=== PATIENT | female | born 1960 | race Caucasian/White ===

== ENCOUNTER 2019-12-15 09:04 | Inpatient (IN) ==
[2019-12-15] MEDS ORDERED: PANTOPRAZOLE 40 MG VIAL IV STA (09:34)
[2019-12-15] MEDS ORDERED: ONDANSETRON 4 MG/2 ML VIAL IV STA ×2 (09:34→10:44)
[2019-12-15] MEDS ORDERED: SODIUM CHLORIDE 0.9% 1,000 ML IV STA (09:34)
[2019-12-15] MEDS ORDERED: metroNIDAZOLE INJ 500 MG in PREMIX 1 EACH IV STA (10:44)
[2019-12-15] MEDS ORDERED: cefTRIAXone 1,000 MG in SODIUM CHLORIDE 0.9% 100 ML IV STA (10:44)
[2019-12-15] MEDS ORDERED: fentaNYL 100 MCG/2 ML VIAL IV STA (10:44)
[2019-12-15 10:48] LABS: Basophils # 0.1 10*3/uL (0.0-0.2); Basophils % 0.7 % (0.0-0.8); Eosinophils # 0.3 10*3/uL (0.0-0.87); Eosinophils % 2.6 % (0.00-10.9); Hematocrit 38.4 VOL% (35.7-47.0); Hemoglobin 12.4 GM/DL (12.0-16.0); Immature Granulocytes % 0.5 %; Immature Granulocytes Absolute 0.05 #; Lymphocytes # 1.1 10*3/uL (1.4-4.0); Lymphocytes % 11.5 % (21.3-54.2); Mean Corpuscular HGB Conc 32.3 GM/DL (32-36); Mean Corpuscular Volume 98.7 FL (87-102); Mean Platelet Volume 9.1 FL (9.6-12.0); Monocytes % 6.6 % (1.7-12.7); Neutrophils % 78.1 % (38.7-73.9); Platelet Count 321 T/CUMM (130-400); Red Blood Count 3.89 MC/CUMM (3.8-5.5); Red Cell Distribution Width 17.4 % (9.3-17.3); White Blood Count 9.7 T/CUMM (4-12)
[2019-12-15 11:01] LABS: Alanine Aminotransferase 16 U/L (13-56); Albumin 3.5 G/DL (3.4-5.0); Alkaline Phosphatase 79 U/L (45-117); Amylase 44 U/L (25-115); Aspartate Amino Transferase 26 U/L (0-37); Bilirubin,Total < 0.39 MG/DL (0.2-1.0); Blood Urea Nitrogen 17 MG/DL (7-18); Calcium 9.3 MG/DL (8.5-10.1); Estimated Glom Filtration Rate 63 ML/MIN; Ferritin 34.5 ng/ml (8-252); Glucose 103 MG/DL (74-106); Osmolality,Calculated 278.5 MOS/KG (273-304); Total Protein 7.6 G/DL (6.4-8.3); Troponin I < 0.015 NG/ML (0.00-0.045)
[2019-12-15 11:26] LABS: Apearance,Urine CLEAR (Clear); Bilirubin,Urine Negative (Negative); Blood, Urine Negative (Negative); Glucose,Urine (UA) Negative (Negative); Ketones,Urine 5 mg/dL (Negative); Mucus,Urine Occasional /LPF (Occasional); Nitrite,Urine Negative (Negative); Protein,Urine Negative; RBC,Urine 1 /HPF (0-4); Squamous Epithelial Cell,Urine Occasional /HPF (0-10); Urine Color Yellow (Yellow); Urine Urobilinogen < 2.0 EU/DL (0.2-1.0); WBC,Urine 1 /HPF (0-6)
[2019-12-15] MEDS ORDERED: ALBUTEROL 2.5 MG/3 ML NEB RESP TX PRN (12:13)
[2019-12-15] MEDS: GABAPENTIN 400 MG CAPSULE PO SCH ×2 (15:04→21:24)
[2019-12-15] MEDS: DEXTROSE 5% LACTATED RINGERS 1,000 ML IV SCH ×2 (15:04→22:53)
[2019-12-15] MEDS: HYDROmorphone 2 MG/1 ML VIAL IV PRN ×2 (15:17→21:21)
[2019-12-15] MEDS: ONDANSETRON 4 MG/2 ML VIAL IV PRN ×3 (15:20→21:19)
[2019-12-15] MEDS: CARBIDOPA/LEVODOPA CR 50-200 MG TABLET PO SCH (21:24)
[2019-12-15] MEDS: METOPROLOL SUCCINATE XL 50 MG TABLET PO SCH (21:24)
[2019-12-16] MEDS: HYDROmorphone 2 MG/1 ML VIAL IV PRN ×5 (03:08→20:50)
[2019-12-16] MEDS: ONDANSETRON 4 MG/2 ML VIAL IV PRN ×3 (03:12→16:59)
[2019-12-16] MEDS: DEXTROSE 5% LACTATED RINGERS 1,000 ML IV SCH ×4 (04:30→23:53)
[2019-12-16 05:21] LABS: Basophils % 0.5 % (0.0-0.8); Eosinophils # 0.3 10*3/uL (0.0-0.87); Hematocrit 33.5 VOL% (35.7-47.0); Hemoglobin 10.9 GM/DL (12.0-16.0); Immature Granulocytes % 0.6 %; Immature Granulocytes Absolute 0.05 #; Lymphocytes # 0.9 10*3/uL (1.4-4.0); Lymphocytes % 11.2 % (21.3-54.2); Mean Corpuscular HGB Conc 32.5 GM/DL (32-36); Mean Corpuscular Volume 98.8 FL (87-102); Mean Platelet Volume 9.3 FL (9.6-12.0); Monocytes % 6.4 % (1.7-12.7); Neutrophils % 77.3 % (38.7-73.9); Platelet Count 237 T/CUMM (130-400); Red Blood Count 3.39 MC/CUMM (3.8-5.5); Red Cell Distribution Width 17.2 % (9.3-17.3); White Blood Count 8.4 T/CUMM (4-12)
[2019-12-16 05:37] LABS: Calcium 8.4 MG/DL (8.5-10.1); Osmolality,Calculated 280.4 MOS/KG (273-304)
[2019-12-16] MEDS: ENOXAPARIN 40 MG/0.4 ML SYRINGE SUBCUT SCH (06:16)
[2019-12-16] MEDS: PANTOPRAZOLE 40 MG TABLET PO SCH (08:21)
[2019-12-16] MEDS: GABAPENTIN 400 MG CAPSULE PO SCH ×3 (08:21→20:51)
[2019-12-16] MEDS: DILTIAZEM CD 240 MG CAPSULE PO SCH (08:21)
[2019-12-16] MEDS: PROMETHAZINE INJ 25 MG in SODIUM CHLORIDE 0.9% 50 ML IV PRN ×2 (10:55→20:38)
[2019-12-16] MEDS: POTASSIUM CHLORIDE RIDER 10 MEQ in PREMIX 1 EACH IV SCH ×4 (11:46→16:01)
[2019-12-16] MEDS: CARBIDOPA/LEVODOPA CR 50-200 MG TABLET PO SCH (20:51)
[2019-12-16] MEDS: METOPROLOL SUCCINATE XL 50 MG TABLET PO SCH (20:51)
[2019-12-17] MEDS: HYDROmorphone 2 MG/1 ML VIAL IV PRN ×4 (00:44→21:22)
[2019-12-17] MEDS: ONDANSETRON 4 MG/2 ML VIAL IV PRN ×2 (00:46→09:20)
[2019-12-17] MEDS: ENOXAPARIN 40 MG/0.4 ML SYRINGE SUBCUT SCH (05:53)
[2019-12-17 05:54] LABS: Basophils % 0.5 % (0.0-0.8); Eosinophils # 0.4 10*3/uL (0.0-0.87); Hematocrit 30.9 VOL% (35.7-47.0); Hemoglobin 9.9 GM/DL (12.0-16.0); Immature Granulocytes % 0.3 %; Immature Granulocytes Absolute 0.02 #; Lymphocytes # 1.4 10*3/uL (1.4-4.0); Lymphocytes % 21.5 % (21.3-54.2); Mean Corpuscular Volume 99.7 FL (87-102); Mean Platelet Volume 9.3 FL (9.6-12.0); Monocytes % 10.8 % (1.7-12.7); Neutrophils % 60.9 % (38.7-73.9); Platelet Count 220 T/CUMM (130-400); Red Cell Distribution Width 17.2 % (9.3-17.3); White Blood Count 6.6 T/CUMM (4-12)
[2019-12-17 06:08] LABS: Calcium 8.6 MG/DL (8.5-10.1); Osmolality,Calculated 277.4 MOS/KG (273-304)
[2019-12-17] MEDS: PANTOPRAZOLE 40 MG TABLET PO SCH (08:10)
[2019-12-17] MEDS: GABAPENTIN 400 MG CAPSULE PO SCH ×2 (08:10→14:46)
[2019-12-17] MEDS: DILTIAZEM CD 240 MG CAPSULE PO SCH (08:10)
[2019-12-17] MEDS: DEXTROSE 5% LACTATED RINGERS 1,000 ML IV SCH ×3 (08:10→20:15)
[2019-12-17] MEDS ORDERED: IMMUNE GLOBULIN 10% 20 GM, IMMUNE GLOBULIN 10% 5 GM in PREMIX 1 EACH IV ONE (10:43)
[2019-12-17] MEDS: PROMETHAZINE INJ 25 MG in SODIUM CHLORIDE 0.9% 50 ML IV PRN (11:01)
[2019-12-17] MEDS ORDERED: ceFAZolin 1,000 MG in SYRINGE 1 EACH IV ONE ×2 (13:30→14:00)
[2019-12-17 17:18] LABS: Apearance,Urine CLEAR (Clear); Bilirubin,Urine Negative (Negative); Blood, Urine Negative (Negative); Glucose,Urine (UA) Negative (Negative); Ketones,Urine Negative (Negative); Mucus,Urine Occasional /LPF (Occasional); Nitrite,Urine Negative (Negative); Protein,Urine Negative; RBC,Urine 2 /HPF (0-4); Urine Color Straw (Yellow); Urine Urobilinogen < 2.0 EU/DL (0.2-1.0); WBC,Urine <1 /HPF (0-6)
[2019-12-17] MEDS ORDERED: propofoL 200 MG/20 ML VIAL IV ONE (20:29)
[2019-12-17] MEDS ORDERED: MIDAZOLAM 2 MG/2 ML VIAL ONE (20:29)
[2019-12-17] MEDS ORDERED: LIDOCAINE 2% 5 ML VIAL ONE (20:29)
[2019-12-17] MEDS ORDERED: DESFLURANE 1 UNIT/15 MINUTE INH ONE (20:30)
[2019-12-17] MEDS ORDERED: fentaNYL 100 MCG/2 ML VIAL ONE (20:30)
[2019-12-17] MEDS ORDERED: LACTATED RINGERS 2,000 ML IV ONE (20:30)
[2019-12-17] MEDS ORDERED: ROCURONIUM 100 MG/10 ML VIAL IV ONE (20:30)
[2019-12-17] MEDS ORDERED: hydrALAZINE 20 MG/1 ML VIAL ONE (20:30)
[2019-12-17 21:08] LABS: ABG Base Excess 4.1 MMOL/L (-2.5-2.5); ABG HCO3 28.1 MMOL/L (20-26); ABG Oxygen Saturation 99.5 % (95-100); ABG PCO2 35.1 MM HG (35-48); ABG PH 7.496 (7.35-7.45); ABG TCO2 23.5 MMOL/L (23-27); Allen Test Positive; Pt O2 Delivery Device Ventilator
[2019-12-18] MEDS: CARBIDOPA/LEVODOPA CR 50-200 MG TABLET PO SCH ×2 (03:34→20:35)
[2019-12-18] MEDS: GABAPENTIN 400 MG CAPSULE PO SCH ×4 (03:34→20:35)
[2019-12-18] MEDS: METOPROLOL SUCCINATE XL 50 MG TABLET PO SCH (03:34)
[2019-12-18 04:11] LABS: ABG Base Excess 6.4 MMOL/L (-2.5-2.5); ABG HCO3 29.9 MMOL/L (20-26); ABG Oxygen Saturation 98.6 % (95-100); ABG PCO2 38.8 MM HG (35-48); ABG PH 7.505 (7.35-7.45); ABG PO2 135.2 MM HG (80-95); ABG TCO2 31.1 MMOL/L (23-27); Allen Test Positive; Pt O2 Delivery Device Ventilator
[2019-12-18] MEDS: DEXTROSE 5% LACTATED RINGERS 1,000 ML IV SCH ×4 (04:15→20:00)
[2019-12-18 04:24] LABS: Basophils % 0.3 % (0.0-0.8); Eosinophils # 0.1 10*3/uL (0.0-0.87); Eosinophils % 0.4 % (0.00-10.9); Hematocrit 34.6 VOL% (35.7-47.0); Hemoglobin 11.4 GM/DL (12.0-16.0); Immature Granulocytes % 0.7 %; Immature Granulocytes Absolute 0.09 #; Lymphocytes % 7.4 % (21.3-54.2); Mean Corpuscular HGB Conc 32.9 GM/DL (32-36); Mean Corpuscular Volume 98.6 FL (87-102); Mean Platelet Volume 9.3 FL (9.6-12.0); NRBC # 0.03 10*3/uL; Neutrophils % 85.2 % (38.7-73.9); Platelet Count 274 T/CUMM (130-400); Red Blood Count 3.51 MC/CUMM (3.8-5.5); Red Cell Distribution Width 17.5 % (9.3-17.3); White Blood Count 13.5 T/CUMM (4-12)
[2019-12-18 05:16] LABS: Calcium 8.5 MG/DL (8.5-10.1)
[2019-12-18] MEDS: ENOXAPARIN 40 MG/0.4 ML SYRINGE SUBCUT SCH (06:46)
[2019-12-18] MEDS: HYDROmorphone 2 MG/1 ML VIAL IV PRN ×3 (07:07→20:43)
[2019-12-18] MEDS ORDERED: MAGNESIUM SULF RIDER 4 GM in PREMIX 1 EACH IV ONE (07:35)
[2019-12-18] MEDS: POTASSIUM CHLORIDE RIDER 10 MEQ in PREMIX 1 EACH IV SCH ×5 (08:23→12:08)
[2019-12-18] MEDS: DILTIAZEM CD 240 MG CAPSULE PO SCH (09:03)
[2019-12-18] MEDS: PANTOPRAZOLE 40 MG VIAL IV SCH (09:18)
[2019-12-18] MEDS: METOPROLOL TARTRATE 5 MG/5 ML VIAL IV SCH ×3 (11:53→23:38)
[2019-12-18] MEDS: hydrALAZINE 20 MG/1 ML VIAL IV PRN ×2 (12:39→20:30)
[2019-12-18] MEDS: PYRIDOSTIGMINE 60 MG TABLET PER TUBE SCH (20:35)
[2019-12-19] MEDS: HYDROmorphone 2 MG/1 ML VIAL IV PRN ×5 (00:12→20:57)
[2019-12-19] MEDS: DEXTROSE 5% LACTATED RINGERS 1,000 ML IV SCH ×3 (04:00→21:52)
[2019-12-19 05:23] LABS: Basophils % 0.3 % (0.0-0.8); Eosinophils # 0.7 10*3/uL (0.0-0.87); Eosinophils % 6.2 % (0.00-10.9); Hematocrit 28.5 VOL% (35.7-47.0); Hemoglobin 9.2 GM/DL (12.0-16.0); Immature Granulocytes % 0.7 %; Immature Granulocytes Absolute 0.08 #; Lymphocytes # 1.1 10*3/uL (1.4-4.0); Lymphocytes % 10.3 % (21.3-54.2); Mean Corpuscular HGB Conc 32.3 GM/DL (32-36); Mean Corpuscular Volume 100.4 FL (87-102); Mean Platelet Volume 9.4 FL (9.6-12.0); Monocytes % 9.2 % (1.7-12.7); NRBC # 0.02 10*3/uL; Neutrophils % 73.3 % (38.7-73.9); Platelet Count 200 T/CUMM (130-400); Red Blood Count 2.84 MC/CUMM (3.8-5.5); White Blood Count 10.9 T/CUMM (4-12)
[2019-12-19] MEDS: METOPROLOL TARTRATE 5 MG/5 ML VIAL IV SCH ×3 (05:26→17:08)
[2019-12-19] MEDS: ENOXAPARIN 40 MG/0.4 ML SYRINGE SUBCUT SCH (05:26)
[2019-12-19 05:44] LABS: Calcium 7.7 MG/DL (8.5-10.1); Osmolality,Calculated 280.3 MOS/KG (273-304)
[2019-12-19 06:47] LABS: ABG Base Excess 5.8 MMOL/L (-2.5-2.5); ABG HCO3 29.8 MMOL/L (20-26); ABG Oxygen Saturation 99.6 % (95-100); ABG PCO2 34.4 MM HG (35-48); ABG PH 7.529 (7.35-7.45)
[2019-12-19] MEDS: POTASSIUM CHLORIDE RIDER 20 MEQ in PREMIX 1 EACH IV SCH ×2 (08:15→10:26)
[2019-12-19] MEDS: PANTOPRAZOLE 40 MG VIAL IV SCH (08:17)
[2019-12-19] MEDS: GABAPENTIN 400 MG CAPSULE PO SCH ×3 (08:17→21:08)
[2019-12-19] MEDS: DILTIAZEM CD 240 MG CAPSULE PO SCH (08:17)
[2019-12-19] MEDS: PYRIDOSTIGMINE 60 MG TABLET PER TUBE SCH ×3 (08:17→21:09)
[2019-12-19] MEDS: POTASSIUM CHLORIDE RIDER 10 MEQ in PREMIX 1 EACH IV SCH (09:25)
[2019-12-19] MEDS: hydrALAZINE 20 MG/1 ML VIAL IV PRN (10:23)
[2019-12-19] MEDS: CARBIDOPA/LEVODOPA CR 50-200 MG TABLET PO SCH (21:09)
[2019-12-19] MEDS: ACETAMINOPHEN 325 MG TABLET PO PRN (21:09)
[2019-12-20] MEDS: METOPROLOL TARTRATE 5 MG/5 ML VIAL IV SCH ×4 (00:38→17:55)
[2019-12-20] MEDS: HYDROmorphone 2 MG/1 ML VIAL IV PRN ×5 (00:48→19:25)
[2019-12-20 03:26] LABS: Basophils % 0.2 % (0.0-0.8); Eosinophils # 0.8 10*3/uL (0.0-0.87); Eosinophils % 8.9 % (0.00-10.9); Hematocrit 29.3 VOL% (35.7-47.0); Hemoglobin 9.5 GM/DL (12.0-16.0); Immature Granulocytes % 0.8 %; Immature Granulocytes Absolute 0.07 #; Lymphocytes # 1.2 10*3/uL (1.4-4.0); Lymphocytes % 14.3 % (21.3-54.2); Mean Corpuscular HGB Conc 32.4 GM/DL (32-36); Mean Corpuscular Volume 100.7 FL (87-102); Mean Platelet Volume 9.3 FL (9.6-12.0); Monocytes % 10.4 % (1.7-12.7); Neutrophils % 65.4 % (38.7-73.9); Platelet Count 225 T/CUMM (130-400); Red Blood Count 2.91 MC/CUMM (3.8-5.5); White Blood Count 8.7 T/CUMM (4-12)
[2019-12-20 03:44] LABS: Calcium 8.3 MG/DL (8.5-10.1); Osmolality,Calculated 277.4 MOS/KG (273-304)
[2019-12-20] MEDS: DEXTROSE 5% LACTATED RINGERS 1,000 ML IV SCH ×2 (05:52→13:37)
[2019-12-20] MEDS: ENOXAPARIN 40 MG/0.4 ML SYRINGE SUBCUT SCH (06:26)
[2019-12-20] MEDS: GABAPENTIN 400 MG CAPSULE PO SCH ×3 (09:16→21:36)
[2019-12-20] MEDS: POTASSIUM CHLORIDE RIDER 20 MEQ in PREMIX 1 EACH IV SCH ×2 (09:16→10:51)
[2019-12-20] MEDS: PANTOPRAZOLE 40 MG VIAL IV SCH (09:17)
[2019-12-20] MEDS: DILTIAZEM CD 240 MG CAPSULE PO SCH (09:17)
[2019-12-20] MEDS: PYRIDOSTIGMINE 60 MG TABLET PER TUBE SCH ×3 (09:17→21:36)
[2019-12-20] MEDS: ONDANSETRON 4 MG/2 ML VIAL IV PRN (10:50)
[2019-12-20] MEDS: ACETAMINOPHEN 325 MG TABLET PO PRN (21:36)
[2019-12-20] MEDS: CARBIDOPA/LEVODOPA CR 50-200 MG TABLET PO SCH (21:36)
[2019-12-21] MEDS: METOPROLOL TARTRATE 5 MG/5 ML VIAL IV SCH ×4 (00:15→18:45)
[2019-12-21] MEDS: HYDROmorphone 2 MG/1 ML VIAL IV PRN ×7 (00:21→21:54)
[2019-12-21] MEDS: ONDANSETRON 4 MG/2 ML VIAL IV PRN ×2 (00:28→16:31)
[2019-12-21] MEDS: DEXTROSE 5% LACTATED RINGERS 1,000 ML IV SCH (02:49)
[2019-12-21] MEDS: ENOXAPARIN 40 MG/0.4 ML SYRINGE SUBCUT SCH (06:11)
[2019-12-21 06:43] LABS: Basophils % 0.4 % (0.0-0.8); Eosinophils # 0.7 10*3/uL (0.0-0.87); Eosinophils % 9.1 % (0.00-10.9); Hemoglobin 9.2 GM/DL (12.0-16.0); Immature Granulocytes % 0.7 %; Immature Granulocytes Absolute 0.05 #; Lymphocytes # 1.1 10*3/uL (1.4-4.0); Mean Corpuscular HGB Conc 31.7 GM/DL (32-36); Mean Corpuscular Volume 100.7 FL (87-102); Mean Platelet Volume 9.4 FL (9.6-12.0); Monocytes % 11.8 % (1.7-12.7); Platelet Count 237 T/CUMM (130-400); Red Blood Count 2.88 MC/CUMM (3.8-5.5); Red Cell Distribution Width 17.1 % (9.3-17.3); White Blood Count 7.6 T/CUMM (4-12)
[2019-12-21 06:56] LABS: Calcium 8.5 MG/DL (8.5-10.1); Osmolality,Calculated 280.3 MOS/KG (273-304)
[2019-12-21] MEDS ORDERED: POTASSIUM CHLORIDE 20 MEQ TABLET PO ONE (08:00)
[2019-12-21] MEDS: PANTOPRAZOLE 40 MG VIAL IV SCH (09:00)
[2019-12-21] MEDS: DILTIAZEM CD 240 MG CAPSULE PO SCH (09:00)
[2019-12-21] MEDS: PYRIDOSTIGMINE 60 MG TABLET PER TUBE SCH ×3 (09:00→21:53)
[2019-12-21] MEDS: GABAPENTIN 400 MG CAPSULE PO SCH ×3 (09:00→21:53)
[2019-12-21] MEDS: POTASSIUM CHLORIDE INJ 40 MEQ in DEXTROSE 5% LACTATED RINGERS 1,000 ML IV SCH ×2 (09:53→18:17)
[2019-12-21] MEDS ORDERED: BENZOCAINE/MENTHOL LOZENGE 18/BOX PO PRN (11:14)
[2019-12-21] MEDS ORDERED: DEXTROSE 50% 25 GM/50 ML VIAL IV PRN (15:11)
[2019-12-21] MEDS ORDERED: GLUCAGON 1 MG VIAL IM PRN (15:11)
[2019-12-21] MEDS: INSULIN REGULAR 100 UNIT/ML SUBCUT SCH ×2 (17:16→21:53)
[2019-12-21] MEDS: CARBIDOPA/LEVODOPA CR 50-200 MG TABLET PO SCH (21:53)
[2019-12-22] MEDS: METOPROLOL TARTRATE 5 MG/5 ML VIAL IV SCH ×4 (01:30→17:18)
[2019-12-22] MEDS: POTASSIUM CHLORIDE INJ 40 MEQ in DEXTROSE 5% LACTATED RINGERS 1,000 ML IV SCH ×3 (01:34→17:16)
[2019-12-22] MEDS: HYDROmorphone 2 MG/1 ML VIAL IV PRN ×8 (03:34→23:36)
[2019-12-22] MEDS: ENOXAPARIN 40 MG/0.4 ML SYRINGE SUBCUT SCH (06:45)
[2019-12-22 06:53] LABS: Basophils % 0.5 % (0.0-0.8); Eosinophils # 0.8 10*3/uL (0.0-0.87); Eosinophils % 10.7 % (0.00-10.9); Hemoglobin 8.4 GM/DL (12.0-16.0); Immature Granulocytes % 0.5 %; Immature Granulocytes Absolute 0.04 #; Lymphocytes % 13.8 % (21.3-54.2); Mean Corpuscular HGB Conc 32.3 GM/DL (32-36); Mean Corpuscular Volume 101.6 FL (87-102); Mean Platelet Volume 9.2 FL (9.6-12.0); Monocytes % 11.5 % (1.7-12.7); Platelet Count 242 T/CUMM (130-400); Red Blood Count 2.56 MC/CUMM (3.8-5.5); Red Cell Distribution Width 16.8 % (9.3-17.3); White Blood Count 7.5 T/CUMM (4-12)
[2019-12-22 07:12] LABS: Calcium 8.6 MG/DL (8.5-10.1); Osmolality,Calculated 279.3 MOS/KG (273-304)
[2019-12-22] MEDS: INSULIN REGULAR 100 UNIT/ML SUBCUT SCH ×4 (07:15→20:18)
[2019-12-22] MEDS: PYRIDOSTIGMINE 60 MG TABLET PER TUBE SCH ×3 (09:06→20:17)
[2019-12-22] MEDS: PANTOPRAZOLE 40 MG VIAL IV SCH (09:06)
[2019-12-22] MEDS: GABAPENTIN 400 MG CAPSULE PO SCH ×3 (09:06→20:17)
[2019-12-22] MEDS: DILTIAZEM CD 240 MG CAPSULE PO SCH (09:07)
[2019-12-22] MEDS: DEXTROSE 5% LACTATED RINGERS 1,000 ML IV SCH (11:18)
[2019-12-22] MEDS: CLINDAMYCIN INJ 900 MG in PREMIX 1 EACH IV SCH ×2 (11:44→20:17)
[2019-12-22] MEDS: ACETAMINOPHEN 325 MG TABLET PO PRN (13:00)
[2019-12-22] MEDS: CARBIDOPA/LEVODOPA CR 50-200 MG TABLET PO SCH (20:17)
[2019-12-22] MEDS: ONDANSETRON 4 MG/2 ML VIAL IV PRN (23:37)
[2019-12-23] MEDS: METOPROLOL TARTRATE 5 MG/5 ML VIAL IV SCH ×5 (01:32→23:21)
[2019-12-23] MEDS: CLINDAMYCIN INJ 900 MG in PREMIX 1 EACH IV SCH ×3 (04:35→20:20)
[2019-12-23] MEDS: ONDANSETRON 4 MG/2 ML VIAL IV PRN ×4 (04:57→20:20)
[2019-12-23] MEDS: HYDROmorphone 2 MG/1 ML VIAL IV PRN ×6 (05:05→23:09)
[2019-12-23] MEDS: ENOXAPARIN 40 MG/0.4 ML SYRINGE SUBCUT SCH (06:34)
[2019-12-23 06:55] LABS: Calcium 8.5 MG/DL (8.5-10.1); Osmolality,Calculated 276.4 MOS/KG (273-304)
[2019-12-23] MEDS: INSULIN REGULAR 100 UNIT/ML SUBCUT SCH ×4 (07:05→20:57)
[2019-12-23] MEDS ORDERED: MAGNESIUM SULF RIDER 2 GM in PREMIX 1 EACH IV ONE (07:27)
[2019-12-23] MEDS: POTASSIUM CHLORIDE INJ 40 MEQ in DEXTROSE 5% LACTATED RINGERS 1,000 ML IV SCH ×3 (07:56→17:02)
[2019-12-23] MEDS: PANTOPRAZOLE 40 MG VIAL IV SCH (07:59)
[2019-12-23] MEDS: GABAPENTIN 400 MG CAPSULE PO SCH ×3 (07:59→20:19)
[2019-12-23] MEDS: PYRIDOSTIGMINE 60 MG TABLET PER TUBE SCH ×3 (07:59→20:19)
[2019-12-23] MEDS: DILTIAZEM CD 240 MG CAPSULE PO SCH (07:59)
[2019-12-23] MEDS ORDERED: PROMETHAZINE 25 MG/1 ML VIAL IM PRN (10:09)
[2019-12-23] MEDS: CARBIDOPA/LEVODOPA CR 50-200 MG TABLET PO SCH (20:19)
[2019-12-24] MEDS: POTASSIUM CHLORIDE INJ 40 MEQ in DEXTROSE 5% LACTATED RINGERS 1,000 ML IV SCH ×2 (00:42→18:51)
[2019-12-24] MEDS: CLINDAMYCIN INJ 900 MG in PREMIX 1 EACH IV SCH ×2 (03:22→13:22)
[2019-12-24 05:27] LABS: Basophils # 0.1 10*3/uL (0.0-0.2); Basophils % 0.9 % (0.0-0.8); Eosinophils # 0.9 10*3/uL (0.0-0.87); Eosinophils % 15.3 % (0.00-10.9); Hematocrit 23.4 VOL% (35.7-47.0); Immature Granulocytes % 1.4 %; Immature Granulocytes Absolute 0.08 #; Lymphocytes # 0.9 10*3/uL (1.4-4.0); Lymphocytes % 16.5 % (21.3-54.2); Mean Corpuscular HGB Conc 29.9 GM/DL (32-36); Mean Corpuscular Volume 108.8 FL (87-102); Mean Platelet Volume 9.8 FL (9.6-12.0); Monocytes % 10.8 % (1.7-12.7); NRBC # 0.02 10*3/uL; Neutrophils % 55.1 % (38.7-73.9); Platelet Count 300 T/CUMM (130-400); Red Blood Count 2.15 MC/CUMM (3.8-5.5); Red Cell Distribution Width 16.5 % (9.3-17.3); White Blood Count 5.6 T/CUMM (4-12)
[2019-12-24 05:34] LABS: Eosinophils 16 % (0-10); Lymphocytes 14 % (20-55); Platelet Estimate Adequate; Segmented Neutrophils 59 % (50-85); Total Cells Counted 100
[2019-12-24 05:35] LABS: Hypochromasia 2+
[2019-12-24] MEDS: ENOXAPARIN 40 MG/0.4 ML SYRINGE SUBCUT SCH (05:39)
[2019-12-24] MEDS: HYDROmorphone 2 MG/1 ML VIAL IV PRN ×5 (05:40→22:43)
[2019-12-24] MEDS: METOPROLOL TARTRATE 5 MG/5 ML VIAL IV SCH ×2 (05:41→13:23)
[2019-12-24] MEDS: ONDANSETRON 4 MG/2 ML VIAL IV PRN ×2 (05:41→13:06)
[2019-12-24 06:59] LABS: Calcium 8.5 MG/DL (8.5-10.1); Osmolality,Calculated 274.4 MOS/KG (273-304)
[2019-12-24] MEDS: INSULIN REGULAR 100 UNIT/ML SUBCUT SCH ×4 (07:15→22:30)
[2019-12-24] MEDS: GABAPENTIN 400 MG CAPSULE PO SCH ×3 (09:35→21:20)
[2019-12-24] MEDS: DILTIAZEM CD 240 MG CAPSULE PO SCH (09:35)
[2019-12-24] MEDS: PYRIDOSTIGMINE 60 MG TABLET PER TUBE SCH ×3 (09:35→21:21)
[2019-12-24] MEDS: PANTOPRAZOLE 40 MG VIAL IV SCH (09:41)
[2019-12-24] MEDS: POLYETHYLENE GLYCOL POWDER 17 GM PACK PO SCH (10:44)
[2019-12-24] MEDS: METOPROLOL SUCCINATE XL 50 MG TABLET PO SCH (21:20)
[2019-12-24] MEDS: CARBIDOPA/LEVODOPA CR 50-200 MG TABLET PO SCH (21:21)
[2019-12-25] MEDS: HYDROmorphone 2 MG/1 ML VIAL IV PRN ×4 (01:31→14:06)
[2019-12-25] MEDS: ENOXAPARIN 40 MG/0.4 ML SYRINGE SUBCUT SCH (06:04)
[2019-12-25 06:55] LABS: Basophils # 0.1 10*3/uL (0.0-0.2); Eosinophils # 1.2 10*3/uL (0.0-0.87); Hematocrit 28.2 VOL% (35.7-47.0); Hemoglobin 8.9 GM/DL (12.0-16.0); Immature Granulocytes Absolute 0.14 #; Lymphocytes # 1.2 10*3/uL (1.4-4.0); Mean Corpuscular HGB Conc 31.6 GM/DL (32-36); Mean Corpuscular Volume 101.4 FL (87-102); Mean Platelet Volume 9.5 FL (9.6-12.0); NRBC # 0.03 10*3/uL; Platelet Count 406 T/CUMM (130-400); Red Blood Count 2.78 MC/CUMM (3.8-5.5); Red Cell Distribution Width 16.9 % (9.3-17.3); White Blood Count 6.9 T/CUMM (4-12)
[2019-12-25 07:17] LABS: Eosinophils 16 % (0-10); Hypochromasia Slight; Lymphocytes 14 % (20-55); Microcytosis Slight; Platelet Estimate Adequate; Segmented Neutrophils 63 % (50-85); Total Cells Counted 100
[2019-12-25 07:23] LABS: Calcium 8.8 MG/DL (8.5-10.1); Osmolality,Calculated 274.4 MOS/KG (273-304)
[2019-12-25] MEDS: INSULIN REGULAR 100 UNIT/ML SUBCUT SCH ×4 (07:35→23:56)
[2019-12-25] MEDS: ONDANSETRON 4 MG/2 ML VIAL IV PRN ×3 (09:06→17:25)
[2019-12-25] MEDS: PANTOPRAZOLE 40 MG VIAL IV SCH (09:09)
[2019-12-25] MEDS: DILTIAZEM CD 240 MG CAPSULE PO SCH (09:10)
[2019-12-25] MEDS: GABAPENTIN 400 MG CAPSULE PO SCH ×3 (09:10→21:11)
[2019-12-25] MEDS: PYRIDOSTIGMINE 60 MG TABLET PER TUBE SCH ×3 (09:10→21:10)
[2019-12-25] MEDS: POLYETHYLENE GLYCOL POWDER 17 GM PACK PO SCH (09:11)
[2019-12-25] MEDS: SULFAMETHOX/TRIMETHOPRIM 800-160 MG TABLET PO SCH ×2 (09:11→21:11)
[2019-12-25] MEDS: METOPROLOL SUCCINATE XL 50 MG TABLET PO SCH (21:09)
[2019-12-25] MEDS: CARBIDOPA/LEVODOPA CR 50-200 MG TABLET PO SCH (21:11)
[2019-12-26] MEDS: ENOXAPARIN 40 MG/0.4 ML SYRINGE SUBCUT SCH (05:53)
[2019-12-26 06:47] LABS: Basophils # 0.1 10*3/uL (0.0-0.2); Basophils % 0.9 % (0.0-0.8); Eosinophils % 9.8 % (0.00-10.9); Hematocrit 31.5 VOL% (35.7-47.0); Hemoglobin 9.8 GM/DL (12.0-16.0); Immature Granulocytes % 1.5 %; Immature Granulocytes Absolute 0.15 #; Lymphocytes # 1.1 10*3/uL (1.4-4.0); Mean Corpuscular HGB Conc 31.1 GM/DL (32-36); Mean Corpuscular Volume 101.6 FL (87-102); Mean Platelet Volume 9.5 FL (9.6-12.0); Monocytes % 7.8 % (1.7-12.7); NRBC # 0.05 10*3/uL; Platelet Count 505 T/CUMM (130-400); Red Cell Distribution Width 16.7 % (9.3-17.3); White Blood Count 9.8 T/CUMM (4-12)
[2019-12-26] MEDS: INSULIN REGULAR 100 UNIT/ML SUBCUT SCH ×4 (07:02→21:10)
[2019-12-26 08:02] LABS: Blood Urea Nitrogen < 1 MG/DL (7-18); Calcium 9.3 MG/DL (8.5-10.1); Estimated Glom Filtration Rate 85 ML/MIN; Glucose 91 MG/DL (74-106); Osmolality,Calculated 272.9 MOS/KG (273-304)
[2019-12-26] MEDS: DILTIAZEM CD 240 MG CAPSULE PO SCH (10:28)
[2019-12-26] MEDS: SULFAMETHOX/TRIMETHOPRIM 800-160 MG TABLET PO SCH ×2 (10:28→20:38)
[2019-12-26] MEDS: PYRIDOSTIGMINE 60 MG TABLET PER TUBE SCH ×3 (10:28→20:39)
[2019-12-26] MEDS: PANTOPRAZOLE 40 MG VIAL IV SCH (10:29)
[2019-12-26] MEDS: GABAPENTIN 400 MG CAPSULE PO SCH ×3 (10:29→20:39)
[2019-12-26] MEDS: ONDANSETRON 4 MG/2 ML VIAL IV PRN ×2 (12:19→17:37)
[2019-12-26] MEDS: CARBIDOPA/LEVODOPA CR 50-200 MG TABLET PO SCH (20:39)
[2019-12-26] MEDS: METOPROLOL SUCCINATE XL 50 MG TABLET PO SCH (20:39)
[2019-12-27] MEDS: ENOXAPARIN 40 MG/0.4 ML SYRINGE SUBCUT SCH (05:41)
[2019-12-27 06:42] LABS: Basophils # 0.2 10*3/uL (0.0-0.2); Basophils % 1.8 % (0.0-0.8); Eosinophils # 1.4 10*3/uL (0.0-0.87); Eosinophils % 15.4 % (0.00-10.9); Hematocrit 31.2 VOL% (35.7-47.0); Hemoglobin 9.9 GM/DL (12.0-16.0); Immature Granulocytes % 1.6 %; Immature Granulocytes Absolute 0.15 #; Lymphocytes # 1.5 10*3/uL (1.4-4.0); Lymphocytes % 16.4 % (21.3-54.2); Mean Corpuscular HGB Conc 31.7 GM/DL (32-36); Mean Corpuscular Volume 98.7 FL (87-102); Mean Platelet Volume 10.2 FL (9.6-12.0); NRBC # 0.05 10*3/uL; Neutrophils % 55.8 % (38.7-73.9); Red Blood Count 3.16 MC/CUMM (3.8-5.5); Red Cell Distribution Width 16.6 % (9.3-17.3); White Blood Count 9.1 T/CUMM (4-12)
[2019-12-27 06:44] LABS: Platelet Count 379 T/CUMM (130-400)
[2019-12-27 06:51] LABS: Calcium 9.2 MG/DL (8.5-10.1); Osmolality,Calculated 272.5 MOS/KG (273-304)
[2019-12-27] MEDS: INSULIN REGULAR 100 UNIT/ML SUBCUT SCH ×4 (07:00→21:40)
[2019-12-27 07:13] LABS: Eosinophils 19 % (0-10); Hypochromasia 1+; Lymphocytes 12 % (20-55); Nucleated Red Blood Cells 1 (0-5); Polychromasia Slight; Segmented Neutrophils 52 % (50-85); Total Cells Counted 100
[2019-12-27 07:14] LABS: Microcytosis 1+
[2019-12-27 07:15] LABS: Anisocytosis 1+
[2019-12-27] MEDS: SULFAMETHOX/TRIMETHOPRIM 800-160 MG TABLET PO SCH ×2 (09:16→21:35)
[2019-12-27] MEDS: GABAPENTIN 400 MG CAPSULE PO SCH ×3 (09:17→21:35)
[2019-12-27] MEDS: DILTIAZEM CD 240 MG CAPSULE PO SCH (09:17)
[2019-12-27] MEDS: PYRIDOSTIGMINE 60 MG TABLET PER TUBE SCH ×3 (09:17→21:35)
[2019-12-27] MEDS: ONDANSETRON 4 MG/2 ML VIAL IV PRN (09:17)
[2019-12-27] MEDS: PANTOPRAZOLE 40 MG VIAL IV SCH (09:21)
[2019-12-27] MEDS: METOPROLOL SUCCINATE XL 50 MG TABLET PO SCH (21:35)
[2019-12-27] MEDS: CARBIDOPA/LEVODOPA CR 50-200 MG TABLET PO SCH (21:35)
[2019-12-28] MEDS: ENOXAPARIN 40 MG/0.4 ML SYRINGE SUBCUT SCH (06:15)
[2019-12-28 06:18] LABS: Osmolality,Calculated 275.4 MOS/KG (273-304)
[2019-12-28 07:34] VITALS: BP 154/96
[2019-12-28] MEDS: INSULIN REGULAR 100 UNIT/ML SUBCUT SCH (09:38)
[2019-12-28] MEDS: ONDANSETRON 4 MG/2 ML VIAL IV PRN (09:51)
[2019-12-28] MEDS: GABAPENTIN 400 MG CAPSULE PO SCH (09:54)
[2019-12-28] MEDS: SULFAMETHOX/TRIMETHOPRIM 800-160 MG TABLET PO SCH (09:54)
[2019-12-28] MEDS: PYRIDOSTIGMINE 60 MG TABLET PER TUBE SCH (09:54)
[2019-12-28] MEDS: DILTIAZEM CD 240 MG CAPSULE PO SCH (09:54)
[2019-12-28] MEDS: PANTOPRAZOLE 40 MG VIAL IV SCH (09:55)
== END 2019-12-28 10:50 | disposition home or self-care (01) | DRG 336 ==
LOC: N.ED 09:04 → N.EDINP 12:02 → N.3E 14:15 → N.CVR 12-17 20:23 → N.ICU 12-19 13:30 → N.3E 12-20 15:08
PROVIDERS: ADMIT Student in an Organized Health Care Education/Training Program; ATTEND Student in an Organized Health Care Education/Training Program

== ENCOUNTER 2020-01-01 06:35 | Inpatient (IN) ==
[2020-01-01] MEDS ORDERED: SODIUM CHLORIDE 0.9% 1,000 ML IV STA (06:53)
[2020-01-01] MEDS ORDERED: PROMETHAZINE 25 MG/1 ML VIAL ONE (06:53)
[2020-01-01] MEDS ORDERED: PROMETHAZINE 25 MG/1 ML VIAL IM STA (06:54)
[2020-01-01] MEDS ORDERED: ACETAMINOPHEN 325 MG TABLET PO PRN (07:18)
[2020-01-01 07:36] LABS: Basophils # 0.2 10*3/uL (0.0-0.2); Basophils % 2.1 % (0.0-0.8); Eosinophils # 0.6 10*3/uL (0.0-0.87); Eosinophils % 7.9 % (0.00-10.9); Hematocrit 34.8 VOL% (35.7-47.0); Immature Granulocytes % 0.7 %; Immature Granulocytes Absolute 0.05 #; Lymphocytes # 1.1 10*3/uL (1.4-4.0); Lymphocytes % 14.7 % (21.3-54.2); Mean Corpuscular HGB Conc 31.6 GM/DL (32-36); Mean Corpuscular Volume 96.9 FL (87-102); Mean Platelet Volume 8.9 FL (9.6-12.0); Monocytes % 7.5 % (1.7-12.7); Neutrophils % 67.1 % (38.7-73.9); Platelet Count 582 T/CUMM (130-400); Red Blood Count 3.59 MC/CUMM (3.8-5.5); Red Cell Distribution Width 15.9 % (9.3-17.3); White Blood Count 7.2 T/CUMM (4-12)
[2020-01-01] MEDS: ONDANSETRON 4 MG/2 ML VIAL IV PRN ×3 (07:36→20:46)
[2020-01-01] MEDS: HYDROmorphone 2 MG/1 ML VIAL IV PRN ×3 (07:38→20:47)
[2020-01-01 07:59] LABS: Albumin 3.6 G/DL (3.4-5.0); Bilirubin,Total 0.4 MG/DL (0.2-1.0); Calcium 9.7 MG/DL (8.5-10.1); Osmolality,Calculated 268.1 MOS/KG (273-304); Total Protein 7.9 G/DL (6.4-8.3)
[2020-01-01 09:41] LABS: Apearance,Urine CLEAR (Clear); Bacteria,Urine Occasional /HPF (Few); Bilirubin,Urine Negative (Negative); Blood, Urine Negative (Negative); Glucose,Urine (UA) Negative (Negative); Ketones,Urine 20 mg/dL (Negative); Mucus,Urine Few /LPF (Occasional); Nitrite,Urine Negative (Negative); Protein,Urine Negative; RBC,Urine 1 /HPF (0-4); Urine Color Yellow (Yellow); Urine Urobilinogen < 2.0 EU/DL (0.2-1.0); WBC,Urine 1 /HPF (0-6)
[2020-01-01] MEDS: DOCUSATE SODIUM 100 MG CAPSULE PO SCH ×2 (10:23→20:46)
[2020-01-01] MEDS: PANTOPRAZOLE 40 MG TABLET PO SCH (10:23)
[2020-01-01] MEDS: DEXTROSE 5% LACTATED RINGERS 1,000 ML IV SCH (10:35)
[2020-01-01] MEDS: PROMETHAZINE 25 MG/1 ML VIAL IM PRN (13:00)
[2020-01-02] MEDS: ONDANSETRON 4 MG/2 ML VIAL IV PRN (03:52)
[2020-01-02] MEDS: PROMETHAZINE 25 MG/1 ML VIAL IM PRN (05:10)
[2020-01-02 05:41] LABS: Basophils # 0.2 10*3/uL (0.0-0.2); Basophils % 2.4 % (0.0-0.8); Eosinophils # 0.8 10*3/uL (0.0-0.87); Eosinophils % 12.4 % (0.00-10.9); Hematocrit 32.7 VOL% (35.7-47.0); Hemoglobin 10.4 GM/DL (12.0-16.0); Immature Granulocytes % 0.3 %; Immature Granulocytes Absolute 0.02 #; Lymphocytes # 1.1 10*3/uL (1.4-4.0); Lymphocytes % 16.4 % (21.3-54.2); Mean Corpuscular HGB Conc 31.8 GM/DL (32-36); Mean Corpuscular Volume 95.6 FL (87-102); Mean Platelet Volume 8.9 FL (9.6-12.0); Neutrophils % 58.5 % (38.7-73.9); Platelet Count 492 T/CUMM (130-400); Red Blood Count 3.42 MC/CUMM (3.8-5.5); Red Cell Distribution Width 15.9 % (9.3-17.3); White Blood Count 6.7 T/CUMM (4-12)
[2020-01-02 06:05] LABS: Eosinophils 11 % (0-10); Hypochromasia 1+; Lymphocytes 13 % (20-55); Platelet Estimate Adequate; Segmented Neutrophils 68 % (50-85); Total Cells Counted 100
[2020-01-02 06:06] LABS: Microcytosis Slight
[2020-01-02 06:29] LABS: Calcium 9.3 MG/DL (8.5-10.1); Osmolality,Calculated 277.4 MOS/KG (273-304)
[2020-01-02] MEDS: HYDROmorphone 2 MG/1 ML VIAL IV PRN ×2 (06:31→12:14)
[2020-01-02] MEDS: DEXTROSE 5% LACTATED RINGERS 1,000 ML IV SCH ×5 (08:14→23:44)
[2020-01-02] MEDS: PANTOPRAZOLE 40 MG TABLET PO SCH (08:15)
[2020-01-02] MEDS: ENOXAPARIN 40 MG/0.4 ML SYRINGE SUBCUT SCH (08:15)
[2020-01-02] MEDS: DOCUSATE SODIUM 100 MG CAPSULE PO SCH ×2 (08:16→21:40)
[2020-01-02] MEDS: METOCLOPRAMIDE 10 MG/2 ML VIAL IV SCH ×2 (11:27→17:03)
[2020-01-02] MEDS ORDERED: ALBUTEROL 2.5 MG/3 ML NEB RESP TX PRN (11:32)
[2020-01-02] MEDS: GABAPENTIN 600 MG TABLET PO SCH ×3 (13:56→21:40)
[2020-01-02] MEDS ORDERED: CARBIDOPA/LEVODOPA CR 50-200 MG TABLET PO SCH (21:00)
[2020-01-02] MEDS ORDERED: METOPROLOL SUCCINATE XL 50 MG TABLET PO SCH (21:00)
[2020-01-03] MEDS: METOCLOPRAMIDE 10 MG/2 ML VIAL IV SCH ×3 (00:45→11:32)
[2020-01-03] MEDS: DEXTROSE 5% LACTATED RINGERS 1,000 ML IV SCH ×2 (01:31→08:51)
[2020-01-03 05:44] LABS: Basophils # 0.2 10*3/uL (0.0-0.2); Basophils % 2.4 % (0.0-0.8); Eosinophils % 14.3 % (0.00-10.9); Hematocrit 32.4 VOL% (35.7-47.0); Hemoglobin 10.3 GM/DL (12.0-16.0); Immature Granulocytes % 0.6 %; Immature Granulocytes Absolute 0.04 #; Lymphocytes # 1.6 10*3/uL (1.4-4.0); Lymphocytes % 22.2 % (21.3-54.2); Mean Corpuscular HGB Conc 31.8 GM/DL (32-36); Mean Corpuscular Volume 96.1 FL (87-102); Mean Platelet Volume 9.2 FL (9.6-12.0); Monocytes % 11.2 % (1.7-12.7); Neutrophils % 49.3 % (38.7-73.9); Platelet Count 471 T/CUMM (130-400); Red Blood Count 3.37 MC/CUMM (3.8-5.5); Red Cell Distribution Width 15.9 % (9.3-17.3)
[2020-01-03 06:10] LABS: Calcium 9.6 MG/DL (8.5-10.1)
[2020-01-03 06:10] LABS: Eosinophils 18 % (0-10); Hypochromasia 1+; Lymphocytes 18 % (20-55); Microcytosis Slight; Nucleated Red Blood Cells 1 (0-5); Ovalocytes Slight; Platelet Estimate Adequate; Segmented Neutrophils 56 % (50-85); Total Cells Counted 100
[2020-01-03] MEDS: DOCUSATE SODIUM 100 MG CAPSULE PO SCH (08:49)
[2020-01-03] MEDS: ENOXAPARIN 40 MG/0.4 ML SYRINGE SUBCUT SCH (08:50)
[2020-01-03] MEDS: GABAPENTIN 600 MG TABLET PO SCH ×2 (08:50→13:45)
[2020-01-03] MEDS: PANTOPRAZOLE 40 MG TABLET PO SCH (08:50)
[2020-01-03] MEDS ORDERED: SPIRONOLACTONE 25 MG TABLET PO SCH (09:00)
[2020-01-03] MEDS ORDERED: DILTIAZEM CD 240 MG CAPSULE PO SCH (09:00)
[2020-01-03] MEDS ORDERED: CHOLECALCIFEROL 1,000 UNIT TABLET PO SCH (09:00)
[2020-01-03] MEDS ORDERED: PYRIDOSTIGMINE 60 MG TABLET PO SCH (10:30)
[2020-01-03 16:51] VITALS: BP 154/92
[2020-01-04] MEDS ORDERED: ASPIRIN CHEW 81 MG TABLET PO SCH (09:00)
[2020-01-04] MEDS ORDERED: ASCORBIC ACID 500 MG TABLET PO SCH (09:00)
== END 2020-01-03 17:20 | disposition home or self-care (01) | DRG 392 ==
LOC: N.ED 06:35 → N.EDINP 09:26 → N.3E 14:50
PROVIDERS: ADMIT Student in an Organized Health Care Education/Training Program; ATTEND Student in an Organized Health Care Education/Training Program

== ENCOUNTER 2021-04-25 05:51 | Inpatient (IN) ==
[2021-04-25] MEDS ORDERED: SODIUM CHLORIDE 0.9% 1,000 ML IV STA (06:13)
[2021-04-25] MEDS ORDERED: ONDANSETRON 4 MG/2 ML VIAL IV STA (06:13)
[2021-04-25] MEDS ORDERED: HYDROmorphone 2 MG/1 ML VIAL IV STA (06:13)
[2021-04-25 06:27] LABS: Basophils % 0.3 % (0.0-0.8); Eosinophils # 0.1 10*3/uL (0.0-0.87); Eosinophils % 0.6 % (0.00-10.9); Hemoglobin 13.8 GM/DL (12.0-16.0); Immature Granulocytes % 0.8 %; Immature Granulocytes Absolute 0.07 #; Lymphocytes # 1.2 10*3/uL (1.4-4.0); Lymphocytes % 13.4 % (21.3-54.2); Mean Corpuscular HGB Conc 33.7 GM/DL (32-36); Mean Corpuscular Volume 101.2 FL (87-102); Mean Platelet Volume 8.6 FL (9.6-12.0); Monocytes % 8.6 % (1.7-12.7); Neutrophils % 76.3 % (38.7-73.9); Platelet Count 278 T/CUMM (130-400); Red Blood Count 4.05 MC/CUMM (3.8-5.5); Red Cell Distribution Width 13.9 % (9.3-17.3); White Blood Count 8.8 T/CUMM (4-12)
[2021-04-25 06:49] LABS: Albumin 3.5 G/DL (3.4-5.0); Bilirubin,Total 0.4 MG/DL (0.20-1.00); Calcium 9.8 MG/DL (8.5-10.1); Osmolality,Calculated 274.7 MOS/KG (273-304); Potassium 3.7 MMOL/L (3.5-5.1); Total Protein 8.6 G/DL (6.4-8.2)
[2021-04-25] MEDS ORDERED: ACETAMINOPHEN 325 MG TABLET PO PRN (08:35)
[2021-04-25] MEDS ORDERED: HYDROmorphone 2 MG/1 ML VIAL IV PRN (08:35)
[2021-04-25] MEDS: DEXTROSE 5% LACTATED RINGERS 1,000 ML IV SCH ×2 (08:52→19:00)
[2021-04-25] MEDS: PANTOPRAZOLE 40 MG VIAL IV SCH (08:52)
[2021-04-25 10:34] LABS: Bilirubin,Urine Negative (Negative); Blood, Urine Negative (Negative); Glucose,Urine (UA) Negative (Negative); Ketones,Urine Negative (Negative); Nitrite,Urine Negative (Negative); Protein,Urine Negative; RBC,Urine <1 /HPF (0-4); Squamous Epithelial Cell,Urine Occasional /HPF (0-10); Urine Appearance CLEAR (Clear); Urine Color Straw (Yellow); Urine Specific Gravity > 1.060 (1.001-1.035); Urine Urobilinogen < 2.0 EU/DL (0.2-1.0)
[2021-04-25] MEDS: GABAPENTIN 600 MG TABLET PO SCH ×3 (14:32→20:55)
[2021-04-25] MEDS: ONDANSETRON 4 MG/2 ML VIAL IV PRN (16:16)
[2021-04-25] MEDS: CARBIDOPA/LEVODOPA CR 25-100 MG TABLET PO SCH (20:55)
[2021-04-25] MEDS: METOPROLOL SUCCINATE XL 100 MG TABLET PO SCH (20:55)
[2021-04-25] MEDS ORDERED: CARBIDOPA/LEVODOPA CR 50-200 MG TABLET PO SCH (21:00)
[2021-04-26] MEDS: DEXTROSE 5% LACTATED RINGERS 1,000 ML IV SCH ×2 (02:07→12:08)
[2021-04-26] MEDS: ENOXAPARIN 40 MG/0.4 ML SYRINGE SUBCUT SCH (02:28)
[2021-04-26 04:21] LABS: Basophils % 0.5 % (0.0-0.8); Eosinophils # 0.2 10*3/uL (0.0-0.87); Eosinophils % 2.6 % (0.00-10.9); Hematocrit 37.7 VOL% (35.7-47.0); Hemoglobin 12.7 GM/DL (12.0-16.0); Immature Granulocytes % 0.6 %; Immature Granulocytes Absolute 0.04 #; Lymphocytes # 1.5 10*3/uL (1.4-4.0); Lymphocytes % 23.3 % (21.3-54.2); Mean Corpuscular HGB Conc 33.7 GM/DL (32-36); Mean Corpuscular Volume 103.3 FL (87-102); Monocytes % 9.9 % (1.7-12.7); Neutrophils % 63.1 % (38.7-73.9); Platelet Count 255 T/CUMM (130-400); Red Blood Count 3.65 MC/CUMM (3.8-5.5); Red Cell Distribution Width 13.9 % (9.3-17.3); White Blood Count 6.6 T/CUMM (4-12)
[2021-04-26 04:38] LABS: Calcium 9.2 MG/DL (8.5-10.1); Osmolality,Calculated 275.7 MOS/KG (273-304); Potassium 4.2 MMOL/L (3.5-5.1)
[2021-04-26] MEDS: PANTOPRAZOLE 40 MG VIAL IV SCH (08:30)
[2021-04-26] MEDS: LORATADINE 10 MG TABLET PO SCH (08:31)
[2021-04-26] MEDS: GABAPENTIN 600 MG TABLET PO SCH ×4 (08:31→22:04)
[2021-04-26] MEDS: DILTIAZEM CD 240 MG CAPSULE PO SCH (08:31)
[2021-04-26] MEDS: CHOLECALCIFEROL 1,000 UNIT TABLET PO SCH (08:31)
[2021-04-26] MEDS: MULTIVITAMIN (CENTRUM) TABLET PO SCH (08:31)
[2021-04-26] MEDS ORDERED: SPIRONOLACTONE 25 MG TABLET PO SCH (09:00)
[2021-04-26] MEDS: PYRIDOSTIGMINE 60 MG TABLET PO SCH ×3 (12:38→22:03)
[2021-04-26] MEDS: CARBIDOPA/LEVODOPA CR 25-100 MG TABLET PO SCH (22:04)
[2021-04-26] MEDS: METOPROLOL SUCCINATE XL 100 MG TABLET PO SCH (22:04)
[2021-04-27] MEDS: DEXTROSE 5% LACTATED RINGERS 1,000 ML IV SCH ×4 (03:03→22:09)
[2021-04-27] MEDS: ENOXAPARIN 40 MG/0.4 ML SYRINGE SUBCUT SCH (03:04)
[2021-04-27 06:23] LABS: Eosinophils # 0.1 10*3/uL (0.0-0.87); Eosinophils % 2.8 % (0.00-10.9); Hematocrit 34.5 VOL% (35.7-47.0); Hemoglobin 11.2 GM/DL (12.0-16.0); Immature Granulocytes % 0.8 %; Immature Granulocytes Absolute 0.03 #; Lymphocytes # 1.4 10*3/uL (1.4-4.0); Lymphocytes % 37.2 % (21.3-54.2); Mean Corpuscular HGB Conc 32.5 GM/DL (32-36); Mean Corpuscular Volume 104.2 FL (87-102); Mean Platelet Volume 9.1 FL (9.6-12.0); Monocytes % 11.4 % (1.7-12.7); Neutrophils % 46.8 % (38.7-73.9); Platelet Count 221 T/CUMM (130-400); Red Blood Count 3.31 MC/CUMM (3.8-5.5); Red Cell Distribution Width 13.8 % (9.3-17.3); White Blood Count 3.9 T/CUMM (4-12)
[2021-04-27 06:47] LABS: Calcium 9.2 MG/DL (8.5-10.1); Osmolality,Calculated 277.4 MOS/KG (273-304); Potassium 3.5 MMOL/L (3.5-5.1)
[2021-04-27] MEDS: DILTIAZEM CD 240 MG CAPSULE PO SCH (09:28)
[2021-04-27] MEDS: CHOLECALCIFEROL 1,000 UNIT TABLET PO SCH (09:28)
[2021-04-27] MEDS: PYRIDOSTIGMINE 60 MG TABLET PO SCH ×3 (09:28→22:02)
[2021-04-27] MEDS: MULTIVITAMIN (CENTRUM) TABLET PO SCH (09:28)
[2021-04-27] MEDS: LORATADINE 10 MG TABLET PO SCH (09:28)
[2021-04-27] MEDS: GABAPENTIN 600 MG TABLET PO SCH ×4 (09:28→22:02)
[2021-04-27] MEDS: ASPIRIN CHEW 81 MG TABLET PO SCH (09:29)
[2021-04-27] MEDS: PANTOPRAZOLE 40 MG VIAL IV SCH (09:29)
[2021-04-27] MEDS: AZITHROMYCIN 250 MG TABLET PO SCH (12:10)
[2021-04-27] MEDS: CARBIDOPA/LEVODOPA CR 25-100 MG TABLET PO SCH (22:03)
[2021-04-27] MEDS: METOPROLOL SUCCINATE XL 100 MG TABLET PO SCH (22:03)
[2021-04-28] MEDS: ENOXAPARIN 40 MG/0.4 ML SYRINGE SUBCUT SCH (02:11)
[2021-04-28] MEDS: DEXTROSE 5% LACTATED RINGERS 1,000 ML IV SCH ×3 (06:57→22:58)
[2021-04-28 08:39] LABS: Basophils % 0.7 % (0.0-0.8); Eosinophils # 0.1 10*3/uL (0.0-0.87); Hemoglobin 11.5 GM/DL (12.0-16.0); Immature Granulocytes % 0.3 %; Immature Granulocytes Absolute 0.01 #; Lymphocytes # 1.2 10*3/uL (1.4-4.0); Lymphocytes % 41.9 % (21.3-54.2); Mean Corpuscular HGB Conc 33.8 GM/DL (32-36); Mean Corpuscular Volume 100.9 FL (87-102); Mean Platelet Volume 9.1 FL (9.6-12.0); Monocytes % 13.5 % (1.7-12.7); Neutrophils % 41.6 % (38.7-73.9); Platelet Count 238 T/CUMM (130-400); Red Blood Count 3.37 MC/CUMM (3.8-5.5)
[2021-04-28 09:09] LABS: Calcium 8.8 MG/DL (8.5-10.1); Osmolality,Calculated 277.3 MOS/KG (273-304); Potassium 3.2 MMOL/L (3.5-5.1)
[2021-04-28] MEDS: DILTIAZEM CD 240 MG CAPSULE PO SCH (10:04)
[2021-04-28] MEDS: MULTIVITAMIN (CENTRUM) TABLET PO SCH (10:04)
[2021-04-28] MEDS: PANTOPRAZOLE 40 MG VIAL IV SCH (10:04)
[2021-04-28] MEDS: CHOLECALCIFEROL 1,000 UNIT TABLET PO SCH (10:04)
[2021-04-28] MEDS: LORATADINE 10 MG TABLET PO SCH (10:05)
[2021-04-28] MEDS: GABAPENTIN 600 MG TABLET PO SCH ×4 (10:05→21:22)
[2021-04-28] MEDS: PYRIDOSTIGMINE 60 MG TABLET PO SCH ×3 (10:06→21:22)
[2021-04-28] MEDS: CARBIDOPA/LEVODOPA CR 25-100 MG TABLET PO SCH (21:22)
[2021-04-28] MEDS: METOPROLOL SUCCINATE XL 100 MG TABLET PO SCH (21:22)
[2021-04-29] MEDS: ENOXAPARIN 40 MG/0.4 ML SYRINGE SUBCUT SCH (02:10)
[2021-04-29 05:40] LABS: Osmolality,Calculated 275.4 MOS/KG (273-304); Potassium 3.5 MMOL/L (3.5-5.1)
[2021-04-29] MEDS: DEXTROSE 5% LACTATED RINGERS 1,000 ML IV SCH ×2 (07:15→12:43)
[2021-04-29] MEDS: MULTIVITAMIN (CENTRUM) TABLET PO SCH (08:46)
[2021-04-29] MEDS: AZITHROMYCIN 250 MG TABLET PO SCH (08:46)
[2021-04-29] MEDS: DILTIAZEM CD 240 MG CAPSULE PO SCH (08:46)
[2021-04-29] MEDS: PYRIDOSTIGMINE 60 MG TABLET PO SCH (08:46)
[2021-04-29] MEDS: CHOLECALCIFEROL 1,000 UNIT TABLET PO SCH (08:46)
[2021-04-29] MEDS: GABAPENTIN 600 MG TABLET PO SCH (08:46)
[2021-04-29] MEDS: ASPIRIN CHEW 81 MG TABLET PO SCH (08:47)
[2021-04-29] MEDS: PANTOPRAZOLE 40 MG VIAL IV SCH (08:47)
[2021-04-29] MEDS: ONDANSETRON 4 MG/2 ML VIAL IV PRN (08:48)
[2021-04-29] MEDS: LORATADINE 10 MG TABLET PO SCH (08:49)
[2021-04-29 11:55] VITALS: BP 135/88
== END 2021-04-29 12:35 | disposition home or self-care (01) | DRG 389 ==
LOC: N.ED 05:51 → N.5E 08:35
PROVIDERS: ADMIT Student in an Organized Health Care Education/Training Program; ATTEND Student in an Organized Health Care Education/Training Program